=== PATIENT | female | born 1980 | race Caucasian/White ===

== ENCOUNTER 2020-07-05 17:20 | Emergency (ER) | payer MEDICAID ==
[~2020-07-05] VITALS: Ht 170.2 cm; Wt 66.9 kg
[2020-07-05 17:36] VITALS: BP 124/79
[2020-07-05] MEDS ORDERED: clindamycin 150mg capsule PO ONE (17:55)
[2020-07-05] MEDS ORDERED: HYDROcodone/acetaminophen 5mg/325mg tablet PO ONE (17:55)
[2020-07-05] MEDS ORDERED: ondansetron 4mg rapidly disintigrating tab PO ONE (17:55)
[2020-07-05] MEDS ORDERED: IBUP-1984 PO (17:57)
[2020-07-05] MEDS ORDERED: CLIN300C70 PO (17:57)
[2020-07-06] MEDS ORDERED: METR500T PO (02:49)
[2020-07-06] MEDS ORDERED: HYDR-3965 PO (02:49)
[2020-07-06] MEDS ORDERED: ONDA4TAB6 PO (02:49)
[2020-07-06] MEDS ORDERED: METH4TAB81 PO (02:49)
== END 2020-07-05 18:27 | disposition home or self-care (01) ==
LOC: ER 17:22
DX: K04.7 Periapical abscess without sinus (principal); Z79.2 Long term (current) use of antibiotics; Z79.899 Other long term (current) drug therapy
CPT/HCPCS: 99284

== ENCOUNTER 2020-07-06 02:21 | Emergency (ER) | payer MEDICAID ==
[~2020-07-06] VITALS: Ht 170.2 cm; Wt 60.9 kg
[~2020-07-06 02:21] MED LIST: CLIN300C70 PO; IBUP-1984 PO
[2020-07-06 02:31] VITALS: BP 122/82
[2020-07-06] MEDS ORDERED: METR500T PO (02:49)
[2020-07-06] MEDS ORDERED: ONDA4TAB6 PO (02:49)
[2020-07-06] MEDS ORDERED: HYDR-3965 PO (02:49)
[2020-07-06] MEDS ORDERED: METH4TAB81 PO (02:49)
[2020-07-06] MEDS ORDERED: ondansetron 4mg rapidly disintigrating tab PO ONE (02:50)
[2020-07-06] MEDS ORDERED: HYDROcodone/acetaminophen 5mg/325mg tablet PO ONE (02:50)
== END 2020-07-06 03:33 | disposition home or self-care (01) ==
LOC: ER 02:21
DX: K04.7 Periapical abscess without sinus (principal); K02.9 Dental caries, unspecified; Z88.5 Allergy status to narcotic agent; Z79.899 Other long term (current) drug therapy; Z79.1 Long term (current) use of non-steroidal anti-inflammatories (NSAID)
CPT/HCPCS: 99283

== ENCOUNTER 2025-04-11 10:38 | Inpatient (IN) | payer MEDICAID ==
[~2025-04-11] VITALS: Ht 165.1 cm; Wt 88.6 kg
[~2025-04-11 10:38] MED LIST changes: -CLIN300C70 PO; -IBUP-1984 PO; +METH4TAB81 PO; +ONDA4TAB6 PO
[2025-04-11 11:24] LABS: MEAN PLATELET VOLUME 10.1 FL (7.4-10.4); RED CELL DISTRIBUTION WIDTH 14.0 % (11.5-14.5)
[2025-04-11 11:54] LABS: CREATININE 0.92 MG/DL (0.40-0.90); TOTAL CARBON DIOXIDE 20.7 MMOL/L (24-32); eCRCL 71 ML/MIN; eGFR 67 ML/MIN
[2025-04-11 12:37] LABS: LEUKOCYTE ESTERASE ,URINE TRACE (Neg); NITRITES, URINE NEGATIVE (Neg); OCCULT BLOOD,URINE TRACE-INTACT (Neg)
[2025-04-11 12:40] LABS: URINE HCG NEGATIVE (NEG)
[2025-04-11 12:54] LABS: UA COLLECTION TYPE NON-SPECIFIED
[2025-04-11 12:57] LABS: SQUAMOUS EPITHELIAL CELL,UR FEW /LPF (FEW)
[2025-04-11 12:58] LABS: MUCUS STRANDS FEW /LPF (Neg)
--- NOTE | 2025-04-11 13:26 | Physician Documentation ---
History of Present Illness ~ Chief Complaint: Abdominal Pain Stated Complaint: ABD PAIN Time Seen by MD: 13:15 Primary Medical Doctor: [facility] [place] Source: patient Mode of Arrival: Ambulatory Exam Limitations: no limitations HPI Chief Complaint: Nausea vomiting diarrhea Caveat: None Independent Historians: None History of Present Illness: Patient is a 44-year-old woman who complains of nausea vomiting diarrhea that began four days ago. Patient was vomiting and having diarrhea as recently as this morning. Patient complains of diffuse mid and right lower quadrant abdominal pain. Pain is described as sharp. Patient denies any fevers. Review of systems: All systems were reviewed and are negative except for what is indicated in the history of present illness. Past Medical History: Depression, anxiety, bipolar illness Past Surgical History: Cholecystectomy Social History: Medications: Reviewed as documented Nursing Notes Allergies: Reviewed as documented in Nursing Notes Medication Reconciliation Allergies: Coded Allergies: codeine (Verified Allergy, Unknown, 02/16/25) Uncoded Allergies: CODIENE (Allergy, Severe, throat closes, 07/05/20) Scheduled Methylprednisolone (Medrol Dosepak), 1 TAB PO UD Scheduled PRN Ondansetron Hcl (Zofran), 1 TAB PO Q6H PRN for nausea/vomiting Past Medical History Past Medical History: No Pertinent History Past Surgical History: noncontributory Alcohol Use: None Drug Use: none Review of Systems All Other Systems at this time: Reviewed and Negative ROS Patient denies any other acute symptoms other than above. All other systems are negative Physical Exam Vital Signs: RN Vital Signs have been reviewed: Yes, Temperature: 97.5, Source: Temporal, Heart Rate: 61, Respiratory Rate: 14, BP: 109/80, Pulse Oximetry: 97, Weight: 88.640 Oxygen Flow Rate: 0 Pulse Oximetry Reflects: adequate oxygenation Physical Exam General Appearance: Distress HEENT: Normal OP, moist oral mucosa, PERRL, EOMI Neck: supple, normal ROM, trachea midline Pulmonary: No respiratory distress, CTA, BS equal Cardiac: RRR, no murmur, rub or gallop, GI: nondistended, soft, diffuse tenderness, most tender in the right lower quadrant, normal bowel sounds, no guarding, no rebound Extremities: normal ROM, no swelling, non-tender Skin: intact, dry, warm, no rashes Neuro: AAOx3, speech is clear, no focal motor weakness Psych: normal affect, good eye contact, no apparent hallucination, normal speech Progress Results/Orders Results/Orders Orders - DENZEL LONG MD Cult Urine + [place] Ct (04/11/25 13:02) Ct Abdomen Pelvis (04/11/25 14:10) Page Hospitalist (04/11/25 15:46) Fill Out Med Reconciliation (04/11/25 15:46) Ct Abdomen Pelvis (04/11/25 19:20) Completed Orders - DENZEL LONG MD Hcg, Ur Ql (04/11/25 10:47) Cbc/Diff (04/11/25 10:47) BMP (04/11/25 10:47) Lipase (04/11/25 10:47) CMP (04/11/25 10:47) Ua W/Microscopic, Cult If Ind (04/11/25 12:00) Ondansetron Inj. (Zofran 4mg/2ml Vial) (04/11/25 13:50) Morphine 4mg/Ml Inj. (Morphine Inj.) (04/11/25 13:50) Ct Abdomen Pelvis (04/11/25 14:10) Diatr Meglu/Diatrizoate 30ml (Gastrograf (04/11/25 16:10) Medications Received in ER Medications (Trade) Dose Ordered Sig/Flakita Route PRN Reason Start Time Stop Time Status Last Admin Dose Admin (Zofran 4mg/2ml vial) 4 mg ONCE ONCE IV 04/11/25 13:50 04/11/25 13:51 DC 04/11/25 14:02 4 MG (morphine inj.) 4 mg Q20M PRN IV moderate to severe pain 4-10 04/11/25 13:50 04/11/25 15:19 DC 04/11/25 15:19 4 MG (Gastrografin 66-10 oral solution) 10 ml Q45M PO 04/11/25 16:10 04/11/25 17:41 DC 04/11/25 17:36 10 ML Vital Signs 04/11/25 04/11/25 04/11/25 04/11/25 10:46 11:45 12:20 12:49 Temp 97.5 Pulse 88 69 61 Resp 18 16 14 B/P (MAP) 122/79 110/76 (87) 109/80 (90) Pulse Ox 99 98 97 O2 Flow Rate 0 0 0 04/11/25 04/11/25 04/11/25 04/11/25 14:03 14:24 14:25 15:19 Pulse 70 69 Resp 16 14 14 12 B/P (MAP) 107/66 (80) 107/66 (80) Pulse Ox 97 95 O2 Flow Rate 0 04/11/25 04/11/25 04/11/25 15:28 15:44 16:00 Pulse 67 Resp 14 14 14 B/P (MAP) 104/63 (77) Pulse Ox 98 O2 Flow Rate 0 Laboratory Tests Test 04/11/25 11:16 04/11/25 12:00 White Blood Count 8.2 Red Blood Count 5.10 Hemoglobin 15.1 Hematocrit 44.3 Mean Corpuscular Volume 86.9 Mean Corpuscular Hemoglobin 29.6 Mean Corpuscular Hemoglobin Concent 34.1 Red Cell Distribution Width 14.0 Platelet Count 207 Mean Platelet Volume 10.1 Neutrophils (%) (Auto) 70.6 Lymphocytes (%) (Auto) 19.1 L Monocytes (%) (Auto) 8.6 Eosinophils (%) (Auto) 1.3 Basophils (%) (Auto) 0.4 Neutrophils # (Auto) 5.7 Lymphocytes # (Auto) 1.6 Monocytes # (Auto) 0.7 Eosinophils # (Auto) 0.1 Basophils # (Auto) 0.0 CBC Comment Sodium Level 138 Potassium Level 3.5 Chloride Level 105 Carbon Dioxide Level 20.7 L Anion Gap 12 Blood Urea Nitrogen 9 Creatinine 0.92 H Estimated GFR/1.73 m2 67 BUN/Creatinine Ratio 9.8 L Glucose Level 103 Calcium Level 9.0 Total Bilirubin 0.7 Aspartate Amino Transf (AST/SGOT) 24 Alanine Aminotransferase (ALT/SGPT) 31 Alkaline Phosphatase 88 Total Protein 7.9 Albumin 4.0 Globulin 3.9 Albumin/Globulin Ratio 1.0 L Lipase 33 Chemistry Comments Urine Specimen Description Non-specified Urine Color Yellow Urine Clarity Slightly cloudy Urine pH 6.0 Urine Specific [place] 1.020 Urine Protein Negative Urine Glucose (UA) Negative Urine Ketones 15 H Urine Occult Blood Trace-intact Urine Nitrite Negative Urine Bilirubin Moderate Urine Urobilinogen 0.2 Urine Leukocyte Esterase Trace H Urine RBC 3-10 Urine WBC 5-10 H Urine Squamous Epithelial Cells Few Urine Bacteria 2+ Urine Hyaline Casts 3-5 Urine Mucus Few Urine Culture Indicated Indicated Volume Urine Centrifuged 10 ml Urine HCG, Qualitative Negative Urine Comment See note Microbiology Date/Time Source Procedure Growth Status 04/11/25 13:02 Urine Nonspecified Urine Culture - Preliminary Culture received. Resulted Medical Decision Making Findings Differential diagnosis includes but is not limited to: EKG independent interpretation: Chest x-ray, single view, indication: Independent interpretation: CT abdomen pelvis, without IV contrast, indication: Abdominal pain Impression: Abnormal dilatation of small bowel loops up to approximately 4 cm. There is associated swirling of the mesentery within the central aspect of the left midabdomen. These findings are concerning for internal hernia / closed loop obstruction. Recommend surgical consultation. Cholecystectomy. Small amount of free pelvic fluid. Laboratory data independent interpretation: CBC: Normal CMP: Unremarkable except for a mild low bicarb of 20.7 Urinalysis: RBC 3-10, WBC 5-10, few squamous epithelial cells 2+ bacteria Urine test: Negative Emergency department course/medical decision-making: Patient presents with acute abdominal pain with the associated nausea and vomiting. Patient is given morphine 4 mg IV and Zofran 4 mg IV and 1 L of normal saline IV. Patient's CT scan is concerning for internal hernia and closed loop obstruction. However the patient has been having diarrhea. Surgery will be consulted. I recommend admission. Dr. Maciel will see the patient this evening. Going to order CT abdomen and pelvis with oral and IV contrast. Admit to the hospitalist. 6:20 p.m.: Patient re-evaluated. Patient's abdominal exam has definitely changed. Patient is now distended and tympanitic to percussion. Patient's ab domen is soft in the upper abdomen it is tender in the lower abdomen. Dr. Maciel called to notify him change and the likely need for surgery. Consultation/communications: 3:25 p.m.: Call up placed out to Dr. Maciel for consultation. 3:43 p.m.: Case discussed with Dr. Maciel. Departure Time of Disposition: 15:53 Disposition: 09 ADMITTED INPATIENT Admitted to Inpatient Unit: to hospitalist Admission Level of Care: Med/Surg Impression: Primary Impression: Abdominal pain Qualified Codes: R10.84 - Generalized abdominal pain Additional Impression: Nausea vomiting and diarrhea Condition: Fair Education Educated: Patient, Family Educated regarding: diagnosis, treatment Signature Scribe Signature: . Attestation: . DENZEL LONG MD Apr 11, 2025 13:26
[2025-04-11] MEDS: ondansetron/PF 4mg/2ml inj IV ONE (14:02)
[2025-04-11] MEDS: morphine 4 MG/ML inj SYRINge IV PRN (14:03)
--- NOTE | 2025-04-11 14:49 | RADIOLOGY REPORT ---
Indication: Abdominal Pain Technique: CT axial images of the abdomen and pelvis are obtained without contrast. Coronal and sagit lamin reformats were obtained. Radiation Dose Information: CTDI volume is 28 mGy. Dose-length product is 1444 mGy*cm Comparison: CT CT ABDOMEN PELVIS on DOS: 02/16/25 FINDINGS: There is limited interpretation of the abdomen and pelvis without administration of intravenous contr ast. Lung bases demonstrate no pleural effusion Adrenal glands, spleen, pancreas and liver unremarkable in shape. Cholecystectomy. Kidneys demonstrate no hydronephrosis, nephrolithiasis. Stomach partially distended. Small bowel loops are dilated up to 4 cm with multiple air-fluid levels . There is swirling of the central mesentery centered in the left midabdomen. Moderate fluid distention large bowel loops. Normal appendix. Bladder is partially distended. Small amount of free pelvic fluid. No inguinal lymphadenopathy. No aggressive osseous process. [id number] thoracolumbar degenerative disc disease most pronounc ed at L5-S1. IMPRESSION: Limited evaluation without contrast. Abnormal dilatation of small bowel loops up to approximately 4 cm. There is associated swirling of th e mesentery within the central aspect of the left midabdomen. These findings are concerning for inte rnal hernia / closed loop obstruction. Recommend surgical consultation. Cholecystectomy. Small amount of free pelvic fluid. Other findings as above
[2025-04-11] MEDS: diatr meglu/diatrizoate 30ml oral sol.-(3 dose) bottle PO SCH (16:20)
[2025-04-11] MEDS ORDERED: potassium Cl 20 mEq SR tablet PO PRN (16:45)
[2025-04-11] MEDS ORDERED: magnesium sulf-water 4G/100mL 100 ML IV PRN (16:45)
[2025-04-11] MEDS ORDERED: magnesium sulf-water 2g/50mL 50 ML IV PRN (16:45)
[2025-04-11] MEDS ORDERED: magnesium Cl slow-release 64mg tablet PO PRN (16:45)
[2025-04-11] MEDS: normal saline 1000ml 1,000 ML IV SCH (17:11)
--- NOTE | 2025-04-11 17:18 | HISTORY AND PHYSICAL-Residence ---
History & Physical Providers to CC Resident Creating Document: ALBA FRANCES RES ~ History of Present Illness Primary Medical Doctor: [facility] Reason for Admit\Complaint: Abdominal pain and diarrhea History of Present Illness The 44-year-old female presented to the ER with a chief concern of worsening diarrhea in the last five days. She developed significant diarrhea on last week and also developed sharp abdominal pain in the epigastric region, umbilical region and hypogastric region. She complains of greenish stool and multiple episodes in a day. She had significant vomiting on Friday and went to [facility] ER where she received IV fluids and sent back home. Today, she denies any abdominal pain but states that she has burps. Has continuous diarrhea and abdominal pain. Denies any blood in the stool or vomiting. Denies any recent antibiotic usage. Stated that she had similar complaints about a month pack and a CT done on 02/16/2025 showed no acute findings. Started using Zepbound 2.5 mg once a week for two months. Denies any dysuria but complains of abdominal pain while passing urine. Denies any other complaints. Had robotic cholecystectomy in 2005. Never had a colonoscopy and no family history of colon cancer. Mentioned that she had issues with intermittent diarrhea and constipation and was told that she might have irritable bowel syndrome. Allergies: Coded Allergies: codeine (Verified Allergy, Unknown, 02/16/25) Uncoded Allergies: CODIENE (Allergy, Severe, throat closes, 07/05/20) Home Medications Home Medications Active Zofran (Ondansetron Hcl) 4 Mg Tablet 1 Tab PO Q6H PRN Medrol Dosepak (Methylprednisolone) 4 Mg Tab.ds.pk 1 Tab PO UD Past Medical History Past Medical History Bipolar disorder, depression, tobacco abuse Past Surgical History Surgical History Comment Robotic cholecystectomy Past Social History Social History Comment Smoked about two packs of cigarettes per day earlier and now came down to 2-3 cigarettes per day. Sober for an year. Stated that she drank a lot earlier- about 750 mL of whiskey in a day. Smokes methamphetamine in the last time she did that was a few months back. Alcohol Use: None Drug Use: None ROS ROS Constitutional: No fever, chills, dizziness, weakness, weight gain or loss Eyes: No pain, erythema, discharge, blurring of vision ENT: No sore throat, epistaxis, tinnitus Cardiovascular: No chest pain, chest pressure, chest discomfort, palpitations, syncope, lower extremity edema, paroxysmal nocturnal dyspnea Respiratory: No shortness of breath, cough, hemoptysis Gastrointestinal: Nausea, diarrhea present. Normal appetite. No vomiting,constipation, hematemesis, abdominal pain, bloating, melena or fresh blood Genitourinary: No frequency, urgency, nocturia, hematuria or dysuria Musculoskeletal: No arthralgias or myalgias Integumentary: No change in skin, hair, nails. No swelling, bruising, abrasions Neurologic: No headache, neck pain, numbness or tingling of the extremities, weakness Psychiatric: No delusions, depression, loss of interest in normal activity or change in sleep pattern, hallucinations, suicidal ideations Endocrine: No fatigue, weakness, polydipsia, polyuria, change in appetite, heat or cold intolerance, sweating, dry skin Hematological: No bleeding, petechiae, bruising Allergies: No asthma or urticaria Exam Vitals: Vital Signs Date Time Temp Pulse Resp B/P (MAP) Pulse Ox O2 Delivery O2 Flow Rate FiO2 04/11/25 16:45 64 14 112/69 (83) 98 0 04/11/25 10:46 97.5 General: Alert and oriented x4 HEENT: Normocephalic and atraumatic. Pupils equal round reactive to light and accommodation. Extraocular movements intact. Oral and nasal mucosa moist Neck: Trachea is in midline. No masses or JVD Chest: Bilateral normal breath sounds. No crackles, rhonchi or wheezes Cardiovascular: Regular rate and rhythm. S1-S2 normal. No rubs or murmurs Abdomen: Soft, mildly distended. Tenderness mainly in the hypogastric and umbilical region. Decreased bowel sounds in the right upper quadrant and lumbar region. Extremities: No cyanosis, clubbing or edema Central Nervous System: No gross sensory or motor deficits. CN II to XII grossly intact Musculoskeletal: No acute abnormalities Skin: Warm and dry Diagnostic Data Last Recorded Lab Results: 04/11/25 1116 04/11/25 1116 Diagnostic Data: Laboratory Tests Test 04/11/25 17:04 Advance Care Planning Advanced Care plannin - 30 Minutes Additional Plan Abdominal pain, diarrhea, nausea Possible closed loop bowel obstruction Metabolic acidosis with normal anion gap C diff toxin ordered Abdomen/pelvis CT showed abnormal dilatation of small-bowel loops up to 4 cm, associated swelling of the mesentery within the central aspect of left mid abdomen. Concerning for internal hernia/close loop obstruction. Cholecystectomy. Small amount of free pelvic fluid ER physician consulted Dr. Maciel. Recommended Abdomen/pelvis CT with oral and IV contrast. Did not recommend any NG tube. Not actively vomiting Abdomen/pelvis CT with oral and IV contrast ordereded. Surgeon will see the patient later today Hold home medications Zepbound Patient aving multiple episodes of diarrhea. So, Unlikely to have a complete bowel obstruction Pending lactic acid, urine tox Started normal saline at 100 cc/hour Pending procalcitonin Stool cultures and stool WBCs ordered Zofran prn for nausea/vomiting Did not start on any antibiotics due to suspicion of C diff. No fever, no elevated WBC. Urine analysis: Ketones 15, trace leukocyte esterase, 5-10 WBC, 2+ bacteria, 3- 5 casts Depression/bipolar disorder Continue home medication after med reconciliation Tobacco abuse Start nicotine patch if needed Holding nicotine patch for now due to possible surgery # pending home medication reconciled DVT prophylaxis: SCDs for now. Possible surgery today GI prophylaxis: NPO Alba Frances MD Internal Medicine Resident, PGY 3 Date of Service: Apr 11, 2025 Billing Provider: TOM CHANG MD, MANOJNA RES Apr 11, 2025 17:18
[2025-04-11 17:26] LABS: APTT 25 SECONDS (22-32); INR 1.1 INR
[2025-04-11] MEDS ORDERED: iohexol 300mg/ml 100ml inj. ONE (18:39)
[2025-04-11 19:05] VITALS: BP 127/78; PULSE 59; RESP 18; TEMP 97.7; O2SAT 99
--- NOTE | 2025-04-11 19:13 | RADIOLOGY REPORT ---
COMPUTERIZED TOMOGRAPHY ABDOMEN AND PELVIS WITH CONTRAST REASON FOR EXAM: Abdominal Pain COMPARISON: CT CT ABDOMEN PELVIS on DOS: 04/11/25, CT CT ABDOMEN PELVIS on DOS: 02/16/25 TECHNIQUE: The exam was performed on a Multidetector scanner. Spiral scans were acquired from the henri phragm to the symphysis pubis after administration of IV contrast. 2-D coronal and sagittal reformatt ed images were provided. Radiation optimization: All CT scans at this facility use at least one of th nessa dose optimization techniques: Automated exposure control mA and/or kV adjustment per patient size (includes targeted exams where dose is matched to clinical indication) or iterative reconstruction. CONTRAST ADMINISTRATION: 180 mL omnipaque 300 intravenously RADIATION DOSE: CTDI: 30 mGy DLP: 1456 mGy-cm FINDINGS: The visualized lung bases are clear. There is no pleural effusion. There is no pericardial effusion . There is a small hiatal hernia. The stomach is moderately distended with contrast and other ingested material. The spleen is not enlarged. The liver is normal in size and contour. The gallbladder is s urgically absent. The pancreas is unremarkable. The adrenal glands are normal. The kidneys enhance sy mmetrically. No solid renal mass is identified. There is no hydronephrosis of either kidney. The uri nary bladder is unremarkable. The uterus and ovaries are within normal limits. There is some liquid s tool in the colon and rectum, consistent with diarrhea. The appendix is normal. There is fluid disten ding several loops of distal ileum with a transition point in the low middle anterior pelvis. The te rminal ileum is decompressed. There is trace free fluid in the dependent pelvis. No pathologic lympha denopathy is identified. There is no abdominal aortic aneurysm. No acute osseous abnormality is iden tified. IMPRESSION: Likely early versus low-grade distal small bowel obstruction with a transition point in the low middl e anterior pelvis. Small hiatal hernia.
[2025-04-11 19:42] LABS: URINE AMPHETAMINE SCREEN NEGATIVE (Neg); URINE BARBITUATE SCREEN NEGATIVE (Neg); URINE BENZODIAZEPINES SCREEN NEGATIVE (Neg); URINE CANNABINOID SCREEN POSITIVE (Neg); URINE COCAINE SCREEN NEGATIVE (Neg); URINE METHADONE SCREEN NEGATIVE (Neg); URINE OPIATE SCREEN NEGATIVE (Neg); URINE PHENCYCLIDINE SCREEN NEGATIVE (Neg)
[2025-04-11] MEDS: K and/or MAG REPLACEMENT MC SCH (20:00)
--- NOTE | 2025-04-11 20:35 | PROGRESS NOTE ---
Progress Note ID Providers to CC ~ Progress Note Progress Note: discussed with nurse-multiple bm SACHIN FISH MD Apr 11, 2025 20:35
[2025-04-11 22:00] VITALS: BP 109/63; PULSE 60; RESP 16; TEMP 97.9; O2SAT 95
[2025-04-11] MEDS ORDERED: DOCU-391 PO (22:28)
[2025-04-11] MEDS ORDERED: GABA-1405 PO (22:28)
[2025-04-11] MEDS ORDERED: BUPR-480 PO (22:28)
[2025-04-11] MEDS ORDERED: ZOLP-679 PO (22:28)
[2025-04-11] MEDS ORDERED: TIRZ2.5P3 SQ (22:28)
[2025-04-11] MEDS ORDERED: FLUO-1 PO (22:28)
[2025-04-11] MEDS ORDERED: PROG100C11 PO (22:28)
[2025-04-12] MEDS: ondansetron/PF 4mg/2ml inj IV PRN (04:56)
[2025-04-12 05:36] LABS: MEAN PLATELET VOLUME 10.4 FL (7.4-10.4); RED CELL DISTRIBUTION WIDTH 13.9 % (11.5-14.5)
[2025-04-12 05:47] LABS: APTT 25 SECONDS (22-32); INR 1.1 INR
[2025-04-12 06:00] VITALS: BP 101/58; PULSE 61; RESP 16; TEMP 98; O2SAT 99
[2025-04-12 06:06] LABS: CREATININE 0.72 MG/DL (0.40-0.90); PHOSPHORUS 3.4 MG/DL (2.3-4.5); TOTAL CARBON DIOXIDE 23.5 MMOL/L (24-32); eCRCL 91 ML/MIN; eGFR 88 ML/MIN
[2025-04-12 08:10] LABS: C DIFF ANTIGEN NEGATIVE (NEGATIVE); C DIFF SPECIMEN=DIARRHEA? ACCEPTABLE; C DIFFICILE TOXINS A&B NEGATIVE (Neg)
[2025-04-12 10:00] VITALS: BP 100/59; PULSE 56; RESP 15; TEMP 97.5; O2SAT 99
[2025-04-12] MEDS: potassium Cl 40MEQ/1/2NS 520ml 520 ML IV PRN (11:18)
[2025-04-12 11:45] VITALS: BP 108/59; PULSE 54
[2025-04-12] MEDS: CefTRIAXone/D5W-Rocephin 1gm 50 ML IV ONE (15:23)
--- NOTE | 2025-04-12 16:05 | PROGRESS NOTE- Residence ---
Progress Note - Resident Providers to CC Resident Creating Document: CINTHYA RENTERIA RES ~ Antibiotic Timeout Antibiotic Ordered?: Yes Subjective Patient is seen and examined at bedside,She is complaining of diffuse abdominal pain which is 8/10 in intensity and diarhhea which is greenish in colour, She denies vomitting and nausea Objective Vital Signs Date Time Temp Pulse Resp B/P (MAP) Pulse Ox O2 Delivery O2 Flow Rate FiO2 04/12/25 11:45 54 108/59 (75) 04/12/25 10:00 97.5 15 99 Room Air 04/11/25 22:00 0.0 Result Diagram: 04/12/25 0441 04/12/25 0441 General: awake, alert oriented to place, time, and person HEENT: No pallor present, no icterus, moist mucous membranes Neck: No masses and tenderness Resp: Unlabored. Lungs clear to auscultation bilaterally. Chest: Normal expansion. Cardiovascular: Regular Rate and rhythm, normal S1 and S2 without murmur, rub or gallop Abdomen: Soft and diffusely tender abdomen, no organomegaly, no guarding and rigidity, bowel sounds present Neuro: No focal weakness in the upper and lower limb muscles, power of the muscles 5/5 bilateral upper and lower extremities, normal reflexes bilaterally. Cranial nerves intact Extremities: No cyanosis,clubbing or edema Skin: Warm and Dry. Psych: Normal affect Coagulation Studies Laboratory Tests Test 04/12/25 04:41 Prothrombin Time 11.0 SECONDS (9.0-12.0) INR International Normalized Ratio 1.1 INR Activated Partial Thromboplast Time 25 SECONDS (22-32) Coagulation Comments Plan Plan Acute gastroenteritis viral versus bacterial Abdominal pain, diarrhea, nausea secondary to above Possible closed loop bowel obstruction Metabolic acidosis with normal anion gap C diff toxin ordered Abdomen/pelvis CT showed abnormal dilatation of small-bowel loops up to 4 cm, associated swelling of the mesentery within the central aspect of left mid abdomen. Concerning for internal hernia/close loop obstruction. Cholecystectomy. Small amount of free pelvic fluid ER physician consulted Dr. Maciel. Recommended Abdomen/pelvis CT with oral and IV contrast. Did not recommend any NG tube. Not actively vomiting Abdomen/pelvis CT with oral and IV contrast ordereded. Surgeon will see the patient later today Hold home medications Zepbound Patient aving multiple episodes of diarrhea. So, Unlikely to have a complete bowel obstruction Pending lactic acid, urine tox Started normal saline at 100 cc/hour Pending procalcitonin Stool cultures and stool WBCs ordered Zofran prn for nausea/vomiting Did not start on any antibiotics due to suspicion of C diff. No fever, no elevated WBC. Urine analysis: Ketones 15, trace leukocyte esterase, 5-10 WBC, 2+ bacteria, 3- 5 casts On 04/12/25 Started patient empiric antibiotic,flagyl 500 mg BID and rocephin 1 g. Creatinine imprvoed from 0.92 to 0.72 Follow up with stool cultures, ova and parasite stool antigen Procalcitonin < 0.05 UA TOX positive for cannabinoids C.diff toxin and antigen negative Awaiting hep b panel Dr. Maciel following, appreciate recommendations Hypokalemia K 3.3 Replace potassium per protocol Depression Continue bupropion 300 mg and fluxoetine 20 mg,once patient is no longer NPO. Tobacco Use Start nicotine patch if needed DVT prophylaxis: SCDs for now. Cinthya Renteria, PGY1 Resident Addendum: Chart reviewed by me agree with the assessment and plan as above. Patient is a 45-year-old female admitted for acute gastroenteritis with profuse diarrhea. Testing for C diff is negative so far. She does not have any signs of infection white count within normal limits procalcitonin within normal limits. Started empiric IV antibiotics for possible bacterial gastroenteritis with Flagyl and ceftriaxone. Follow up with stool cultures ova and parasites. Yuli Wooten MD IM resident Date of Service: Apr 12, 2025 Billing Provider: CINTHYA RENTERIA RES KUMAR, SANJAY, RES Apr 12, 2025 16:05 YULI WOOTEN RES Apr 12, 2025 18:17
[2025-04-12] MEDS: metroNIDAZOLE-Flagyl 500mg/NS 100 ML IV SCH (16:14)
[2025-04-12] MEDS ORDERED: diatr meglu/diatrizoate 30ml oral sol.-(3 dose) bottle ONE (17:52)
[2025-04-12 18:00] VITALS: BP 126/83; PULSE 60; RESP 16; TEMP 97.6; O2SAT 99
[2025-04-12 18:30] VITALS: BP 126/83; PULSE 60; RESP 16; TEMP 97.6; O2SAT 99
--- NOTE | 2025-04-12 19:09 | RADIOLOGY REPORT ---
EXAM: CT CT ABDOMEN PELVIS W/ RECTAL CON CONTRAST HISTORY: pain TECHNIQUE: Volumetric multidetector CT images of the abdomen and pelvis were obtained after the admin istration of intravenous contrast. All CT scans at this facility use dose modulation, iterative recon struction, and/or weight based dosing when appropriate to reduce radiation dose to as low as reasonab ly achievable. COMPARISON: CT CT ABDOMEN PELVIS W/ IV ORAL CONTRAST on DOS: 04/11/25 FINDINGS: [LOWER CHEST]: The partially visualized lung bases are clear without a pleural effusion. [LIVER]: Normal hepatic size without suspicious focal lesion. [GALLBLADDER AND BILIARY TREE]: Surgically absent. [SPLEEN]: Unremarkable. [PANCREAS]: Unremarkable. [ADRENAL GLANDS]: Unremarkable [KIDNEYS]: No hydronephrosis. No nephroureterolithiasis. No suspicious focal lesion. [BLADDER]: Unremarkable for the degree distention. [REPRODUCTIVE ORGANS]: Unremarkable. [BOWEL/MESENTERY]: Stomach is normal. Rectal tube in place with barium contrast extending to the cecu m. Normal appendix. No definitive area of colonic stricture. [ASCITES]: Absent [LYMPHADENOPATHY]: No pathologically enlarged lymph nodes by CT size criteria [VASCULATURE]: No aneurysmal dilatation. [ABDOMINAL WALL]: Unremarkable. [MUSCULOSKELETAL]: No acute fracture or aggressive focal osseous lesion. Multifocal degenerative munguia ge of the visualized spine. IMPRESSION: 1. No CT evidence of an acute abdominal/pelvic process. 2. Rectal tube in place with barium contrast extending to the cecum. Normal appendix. No definitive a tatiana of colonic stricture.
--- NOTE | 2025-04-12 19:22 | PROGRESS NOTE ---
Progress Note ID Providers to CC ~ Progress Note Progress Note: pt seen and examined-multiple bm-no sbo-start clears SACHIN FISH MD Apr 12, 2025 19:22
[2025-04-12 22:00] VITALS: BP 111/67; PULSE 50; RESP 16; TEMP 96.9; O2SAT 99
[2025-04-13 06:00] VITALS: BP 126/67; PULSE 55; RESP 19; TEMP 96.5; O2SAT 98
[2025-04-13 06:15] LABS: APTT 27 SECONDS (22-32); INR 1.1 INR
[2025-04-13 06:18] LABS: MEAN PLATELET VOLUME 10.3 FL (7.4-10.4); RED CELL DISTRIBUTION WIDTH 13.6 % (11.5-14.5)
[2025-04-13 06:21] LABS: CREATININE 0.74 MG/DL (0.40-0.90); PHOSPHORUS 3.1 MG/DL (2.3-4.5); TOTAL CARBON DIOXIDE 25.0 MMOL/L (24-32); eCRCL 88 ML/MIN; eGFR 86 ML/MIN
[2025-04-13] MEDS: BUPROPION HCL 150MG XL 24 HR 150 MG TAB PO SCH (07:57)
[2025-04-13] MEDS: CefTRIAXone/D5W-Rocephin 1gm 50 ML IV SCH (09:56)
[2025-04-13] MEDS: lactobacillus rhamnosus 10,000 MMU CELLS/CAPSULE PO SCH (09:56)
[2025-04-13 10:00] VITALS: BP 121/66; PULSE 55; RESP 14; TEMP 97.5; O2SAT 99
--- NOTE | 2025-04-13 15:36 | CONSULTATION REPORT - RESIDENT ---
Consult Providers to CC Resident Creating Document: ARTURO GREGG RES History of Present Illness Reason for Admit\Complaint: diarrhea History of Present Illness A 44 years old female patient with past medical history of tobacco abuse, depression, bipolar disease presented to ER with chief complaint of worsening diarrhea from the last 5 days. She complains of multiple episodes of greenish, watery, foul-smelling diarrhea from last 5 days associated with nausea, vomiting , sharp abdominal pain in epigastric, umbilical, and hypogastric regions for which she went to [facility] ER where she received IV fluids and sent back to home. She denies abdominal distention, bloating, dyspepsia. She stated that she had similar complaints about a month ago and CT done on 02/16/2025 showed no acute findings. Patient C/O nausea and GERD symptoms including heartburn and acid reflux. She has needed multiple doses of Zofran for symptomatic relief. There symptoms have been chronic. She stated that she is using Zepbound 2.5 mg once a week from 1 month for weight loss. She denies any recent antibiotic usage. She denies any blood in the stool or vomiting. She denies any recent history of travel, food intake outside, fever, sick contacts. She mentioned that she had issues with intermittent diarrhea and constipation and was told that she might have irritable bowel syndrome. she never had a colonoscopy and EGD. She uses Colace occasionally for constipation. She denies any family history of Crohn's disease or ulcerative colitis. Allergies: Coded Allergies: codeine (Verified Allergy, Unknown, 02/16/25) Uncoded Allergies: CODIENE (Allergy, Severe, throat closes, 07/05/20) Home Medications Home Medications Active Zofran (Ondansetron Hcl) 4 Mg Tablet 1 Tab PO Q6H PRN Reported Progesterone (Progesterone,Micronized) 100 Mg Capsule 1 Cap PO DAILY Docusate Sodium 100 Mg Capsule 1 Cap PO HS PRN Ambien (Zolpidem Tartrate) 10 Mg Tablet 1 Tab PO HS Prozac (Fluoxetine HCl) 20 Mg Capsule 1 Cap PO DAILY Gabapentin 600 Mg Tablet 1 Tab PO HS Bupropion Xl (Bupropion HCl) 300 Mg Tab.er.24h 1 Tab PO QAM Zepbound (Tirzepatide) 2.5 Mg/0.5 Ml Pen.injctr 2.5 Mg SQ Q7D Past Medical History Past Medical History Bipolar disorder, depression, tobacco abuse Past Surgical History Surgical History Comment Robotic cholecystectomy, 2006 Family History Family History: FHx: asthma MOTHER Past Social History Social History Comment Active smoker, Smoked about two packs of cigarettes per day earlier and now came down to 2-3 cigarettes per day. Alcoholic, Stated that radha drank a lot earlier-about 750 mL of whiskey in a day. She smokes marijuana, methamphetamine occasionally, she smoked marijuana on last Friday ROS ROS Constitutional: No fever, chills, dizziness, weight gain or loss Eyes: No pain, erythema, discharge, blurring of vision ENT: No sore throat, epistaxis, tinnitus Cardiovascular:No chest pain, palpitations, syncope, lower extremity edema, paroxysmal nocturnal dyspnea Respiratory: No Shortness of breath and cough, No hemoptysis. Gastrointestinal:Reports Abdominal pain, vomiting,nausea and diarrhea. Normal appetite. No constipation,and melena, hematemesis, Musculoskeletal: No swelling or edema of extremities. Integumentary: No change in skin, hair, nails. No swelling, bruising, abrasions Neurologic: No weakness,No headache, neck pain, numbness or tingling of the extremities, Psychiatric: No delusions, depression, loss of interest in normal activity or change in sleep pattern, hallucinations, suicidal ideations Endocrine: No fatigue, no weakness. polydipsia, polyuria, change in appetite, heat or cold intolerance, sweating, dry skin Hematological: No bleeding, petechiae, bruising Allergies: No asthma or urticaria Exam Vitals: Vital Signs Date Time Temp Pulse Resp B/P (MAP) Pulse Ox O2 Delivery O2 Flow Rate FiO2 04/13/25 13:53 15 04/13/25 10:00 97.5 55 121/66 (84) 99 Room Air 04/12/25 22:00 0.0 General: Awake , alert and oriented to time,place, person, in mild distress HEENT: Atraumatic, normocephalic, PEERLA, anicteric sclera ; pink conjunctiva Neck: Trachea midline. Supple, normal range of motion, no JVD Cardiac: S1, S2 heard,Regular rate and rhythm, no murmurs heard. Chest and Respiratory: Equal breath sounds bilaterally, no tachypnea, wheezing and ronchi .Chest wall is symmetric and without deformity. Abdomen: Soft, mildly distended. Tenderness mainly in the hypogastric and umbilical region. Decreased bowel sounds . No guarding or rigidity, Leslie's sign negative. normal bowel sounds x4 quadrant, Midline well-healed skin graft, no hepatosplenomegaly MSK: Range of motion of all extremities are normal. There is no joint pain or joint swelling or joint erythema. There is no muscle pain or tenderness or swelling. Extremities: warm, well-perfused, No cyanosis, clubbing, 2+ pulses felt Neurological: Speech is clear, alert, and oriented x 4. No sensory or motor deficits. Cranial nerves II-XII intact. Skin: Warm and dry Psychiatry: Affect and mood are normal Diagnostic Data Last Recorded Lab Results: 04/13/25 0529 04/13/25 0529 Diagnostic Data: Laboratory Tests Test 04/13/25 05:29 Prothrombin Time 11.5 SECONDS (9.0-12.0) INR International Normalized Ratio 1.1 INR Activated Partial Thromboplast Time 27 SECONDS (22-32) Coagulation Comments Additional Plan Abdominal pain, diarrhea, nausea Possible gastroenteritis Possible cannabis induced diarrhea Possible closed loop bowel obstruction -Hold home medications Zepbound -CT abdomen showed abnormal dilatation of small-bowel loops up to 4 cm, associated swelling of the mesentery within the central aspect of left mid abdomen. Concerning for internal hernia/close loop obstruction. Small amount of free pelvic fluid -ER physician consulted Dr. Maciel. Recommended CT with oral and IV contrast -CT abdomen with oral and IV contrast is unremarkable -Negative for C difficile toxins and antigen -CBC, lactate and procalcitonin normal -Stool culture is negative -Urine toxicology is positive for cannabinoids -awaiting hepatitis-B panel -follow up with TSH level -IV Zofran 4 mg p.r.n. for nausea and vomiting -started on IV protonix 40 mg once daily - started on IV ceftriaxone 1 g once daily - started on IV metronidazole 500 mg q.12 h -Started on IV normal saline at the rate of 100 mL/hour - started on culturelle p.o. b.i.d. Metabolic acidosis with normal anion gap Hypokalemia, resolved Depression/bipolar disorder Tobacco abuse -Continue management as per primary hospitalist team DVT prophylaxis: SCD GI prophylaxis: Clear liquid diet Disposition: A 44 years old female patient admitted with worsening diarrhea for 5 days. Continue the medical management. Colonoscopy/EGD to be scheduled for tomorrow in view of recurrent and chronic symptomatology Val Gregg MD Internal Medicine Resident, PGY 1 Sepsis Screening Reassessment Date: Apr 13, 2025 Date of Service: Apr 13, 2025 Billing Provider: RUBIN SAUCEDO MD, SUNIL KUMAR, RES Apr 13, 2025 15:36 RUBIN SAUCEDO MD Apr 13, 2025 16:29
[2025-04-13] MEDS: PEG 3350/Na sulf,bicarb,Cl/KCl oral sol 4 liter bottle PO ONE (16:52)
--- NOTE | 2025-04-13 17:32 | PROGRESS NOTE- Residence ---
Progress Note - Resident Providers to CC Resident Creating Document: NAVNEET RENTERIA RES ~ Antibiotic Timeout Antibiotic Ordered?: Yes Subjective Patient is seen and examined at bedside,She is complaining of abdominal pain in hypogastric region which is 8/10 in intensity and diarhhea which is greenish in colour. She also feel nauseated but reports that with zofran its improved. Objective Vital Signs Date Time Temp Pulse Resp B/P (MAP) Pulse Ox O2 Delivery O2 Flow Rate FiO2 04/13/25 13:53 15 04/13/25 10:00 97.5 55 121/66 (84) 99 Room Air 04/12/25 22:00 0.0 Result Diagram: 04/13/2552804/13/25528 General: awake, alert oriented to place, time, and person HEENT: No pallor present, no icterus, moist mucous membranes Neck: No masses and tenderness Resp: Unlabored. Lungs clear to auscultation bilaterally. Chest: Normal expansion. Cardiovascular: Regular Rate and rhythm, normal S1 and S2 without murmur, rub or gallop Abdomen: Soft and tender abdomen in hypogastric region, no organomegaly, no guarding and rigidity, bowel sounds present Neuro: No focal weakness in the upper and lower limb muscles, power of the muscles 5/5 bilateral upper and lower extremities, normal reflexes bilaterally. Cranial nerves intact Extremities: No cyanosis,clubbing or edema Skin: Warm and Dry. Psych: Normal affect Coagulation Studies Laboratory Tests Test 04/13/25 05:29 Prothrombin Time 11.5 SECONDS (9.0-12.0) INR International Normalized Ratio 1.1 INR Activated Partial Thromboplast Time 27 SECONDS (22-32) Coagulation Comments Plan Plan Acute gastroenteritis viral versus bacterial Abdominal pain, diarrhea, nausea secondary to above Possible closed loop bowel obstruction Metabolic acidosis with normal anion gap C diff toxin ordered Abdomen/pelvis CT showed abnormal dilatation of small-bowel loops up to 4 cm, associated swelling of the mesentery within the central aspect of left mid abdomen. Concerning for internal hernia/close loop obstruction. Cholecystectomy. Small amount of free pelvic fluid ER physician consulted Dr. Maciel. Recommended Abdomen/pelvis CT with oral and IV contrast. Did not recommend any NG tube. Not actively vomiting Abdomen/pelvis CT with oral and IV contrast ordereded. Surgeon will see the patient later today Hold home medications Zepbound Patient aving multiple episodes of diarrhea. So, Unlikely to have a complete bowel obstruction Pending lactic acid, urine tox Started normal saline at 100 cc/hour Pending procalcitonin Stool cultures and stool WBCs ordered Zofran prn for nausea/vomiting Did not start on any antibiotics due to suspicion of C diff. No fever, no elevated WBC. Urine analysis: Ketones 15, trace leukocyte esterase, 5-10 WBC, 2+ bacteria, 3- 5 casts On 04/12/25 Started patient empiric antibiotic,flagyl 500 mg BID and rocephin 1 g. Creatinine imprvoed from 0.92 to 0.72 Follow up with stool cultures, ova and parasite stool antigen Procalcitonin < 0.05 UA TOX positive for cannabinoids C.diff toxin and antigen negative Awaiting hep b panel Dr. Maciel following, appreciate recommendations On 04/13/25 Started patient on pantoprazole IV 40 MG Also started patient on Culturelle Consulted GI Patient will undergo EGD and Colonoscopy tomorrow. Patient also received Golytely Kept patient NPO aftermidnight Stool cultures NGTD Hypokalemia K 3.5 Depression Continue bupropion 300 mg and fluxoetine 20 mg,once patient is no longer NPO. Tobacco Use Start nicotine patch if needed DVT prophylaxis: SCDs for now. Navneet Renteria, PGY1 Resident Addendum: Chart reviewed by me agree with the assessment and plan as above. Patient is a 45-year-old female admitted for acute gastroenteritis with profuse diarrhea. Testing for C diff and stool cultures negative so far. She does not have any signs of infection white count within normal limits procalcitonin within normal limits. Started empiric IV antibiotics for possible bacterial gastroenteritis with Flagyl and ceftriaxone. GI consulted for continuous profuse diarrhea, patient is scheduled to get EGD and colonoscopy tomorrow. Yuli Wooten MD IM resident Date of Service: Apr 13, 2025 Billing Provider: TOM CHANG MD, SANJAY, JACOB Apr 13, 2025 17:31 YULI WOOTEN, JACOB Apr 13, 2025 19:26
[2025-04-13 18:00] VITALS: BP 125/89; PULSE 51; RESP 12; TEMP 97.9; O2SAT 99
[2025-04-13 19:22] VITALS: RESP 16; O2SAT 95
[2025-04-13 22:00] VITALS: BP 111/62; PULSE 56; RESP 16; TEMP 97.8; O2SAT 96
[2025-04-14] VITALS (7 sets, daily range): BP systolic 97–128; BP diastolic 67–84; PULSE 42–53; RESP 10–16; TEMP 97.8–97.9; O2SAT 97–100
[2025-04-14 06:22] LABS: MEAN PLATELET VOLUME 9.9 FL (7.4-10.4); RED CELL DISTRIBUTION WIDTH 13.7 % (11.5-14.5)
[2025-04-14 06:33] LABS: APTT 27 SECONDS (22-32); INR 1.2 INR
[2025-04-14 06:51] LABS: CREATININE 0.85 MG/DL (0.40-0.90); PHOSPHORUS 3.0 MG/DL (2.3-4.5); TOTAL CARBON DIOXIDE 25.4 MMOL/L (24-32); eCRCL 77 ML/MIN; eGFR 73 ML/MIN
[2025-04-14] MEDS ORDERED: propofol inj 20 ML IV ONE (10:02)
--- NOTE | 2025-04-14 12:13 | PROGRESS NOTE- Residence ---
Progress Note - Resident Providers to CC Resident Creating Document: ARTURO GREGG, JACOB ~ Antibiotic Timeout Antibiotic Ordered?: Yes Subjective Patient complains of abdominal pain in epigastric and hypogastric regions. She endorses that her nausea improved with Zofran. Patient denies any complaints or concerns. No acute overnight symptoms reported. Scheduled for EGD and colonoscopy today. Objective Vital Signs Date Time Temp Pulse Resp B/P (MAP) Pulse Ox O2 Delivery O2 Flow Rate FiO2 04/14/25 11:27 48 13 128/84 (99) 97 Room Air 0.0 04/14/25 10:47 96.6 Result Diagram: 04/14/25 0539 04/14/25 0539 Awake , alert and oriented to time,place, person, in mild distress HEENT: Atraumatic, normocephalic, PEERLA, anicteric sclera ; pink conjunctiva Neck: Trachea midline. Supple, normal range of motion, no JVD Cardiac: S1, S2 heard,Regular rate and rhythm, no murmurs heard. Chest and Respiratory: Equal breath sounds bilaterally, no tachypnea, wheezing and ronchi .Chest wall is symmetric and without deformity. Abdomen: Soft, mildly distended. Tenderness mainly in the hypogastric and umbilical region.No guarding or rigidity, Leslie's sign negative. normal bowel sounds x4 quadrant, , no hepatosplenomegaly MSK: Range of motion of all extremities are normal. There is no joint pain or joint swelling or joint erythema. There is no muscle pain or tenderness or swelling. Extremities: warm, well-perfused, No cyanosis, clubbing, 2+ pulses felt Neurological: Speech is clear, alert, and oriented x 4. No sensory or motor deficits. Cranial nerves II-XII intact. Skin: Warm and dry Psychiatry: Affect and mood are normal Coagulation Studies Laboratory Tests Test 04/14/25 05:39 Prothrombin Time 12.1 SECONDS (9.0-12.0) H INR International Normalized Ratio 1.2 INR Activated Partial Thromboplast Time 27 SECONDS (22-32) Coagulation Comments Assessment Assessment A 44 years old female patient admitted with abdominal pain and worsening diarrhea. Patient scheduled for EGD and colonoscopy Plan Plan Abdominal pain, diarrhea, nausea Possible gastroenteritis Possible cannabis induced diarrhea Ruled out closed loop bowel obstruction -Hold home medications Zepbound -CT abdomen showed abnormal dilatation of small-bowel loops up to 4 cm, associated swelling of the mesentery within the central aspect of left mid abdomen. Concerning for internal hernia/close loop obstruction. Small amount of free pelvic fluid -ER physician consulted Dr. Maciel. Recommended CT with oral and IV contrast -CT abdomen with oral and IV contrast is unremarkable -Negative for C difficile toxins and antigen -CBC, lactate and procalcitonin normal -Stool culture is negative -Urine toxicology is positive for cannabinoids -awaiting hepatitis-B panel -TSH level are in normal limits. -IV Zofran 4 mg p.r.n. for nausea and vomiting -started on IV protonix 40 mg once daily - started on IV ceftriaxone 1 g once daily - started on IV metronidazole 500 mg q.12 h -Started on IV normal saline at the rate of 100 mL/hour - started on culturelle p.o. b.i.d. EGD: Normal esophagus Congested and erythematous mucosa in the antrum and pre-pyloric region of the stomach. Normal duodenal bulb and 2nd portion of duodenum Colonoscopy: Resected and retrieved One 8 mm polyp in the rectum and biopsied. Awaiting for pathology report. -Repeat colonoscopy in 7-10 years for surveillance,if Resected polyp is adenomatous -Advised to follow up with pathology report in [facility] in 2 weeks Metabolic acidosis with normal anion gap Hypokalemia, resolved Depression/bipolar disorder Tobacco abuse -Continue management as per primary hospitalist team DVT prophylaxis: SCD GI prophylaxis: Clear liquid diet Disposition: A 44 years old female patient admitted with worsening diarrhea for 5 days. Colonoscopy showed one 8 mm polyp which was resected and biopsied. Continue the medical management. Val Gregg MD Internal Medicine Resident, PGY 1 Date of Service: Apr 14, 2025 Billing Provider: RUBIN SAUCEDO MD, SUNIL KUMAR, RES Apr 14, 2025 12:13
[2025-04-14] MEDS: potassium Cl 20 mEq SR tablet PO PRN (12:23)
[2025-04-14 13:12] LABS: HBSAG SCREEN Negative (Negative); HEP B CORE AB, IGM Negative (Negative); HEP B CORE AB, TOT Negative (Negative)
[2025-04-14] MEDS ORDERED: LACT1CAP26 PO (17:15)
[2025-04-14] MEDS ORDERED: PANT-47 PO (17:15)
[2025-04-14] MEDS ORDERED: METR-159 PO (17:15)
[2025-04-14] MEDS ORDERED: CEFD300C3 PO (17:15)
[2025-04-14] MEDS ORDERED: ONDA-243 PO (17:15)
[2025-04-14] MEDS ORDERED: potassium Cl 20 mEq SR tablet PO STA (18:03)
--- NOTE | 2025-04-14 18:10 | DISCHARGE SUMMARY-Residence ---
Discharge Summary Providers to CC Resident Creating Document: CINTHYA PEÑA RES CC: TOM CHANG MD ~ Discharge Summary Admission Diagnosis: bowel obstruction Hospital Course DATE OF ADMISSION: 04/11/2025 DATE OF DISCHARGE:04/14/2025 Discharge Diagnosis\Comment: Acute Gastroenteritirs Chronic Diarhea under evaluation Depression Hypokalemia,treated Operations\Procedures: Colonoscopy EGD Consultants: and Dr. Magana Complications: None Condition on DC: Stable New Medications: Cefdinir* (Cefdinir*) 300 Mg Capsule 1 CAP PO Q12H for 3 Days, #6 CAP Metronidazole* (Flagyl*) 500 Mg Tablet 1 TAB PO BID for 3 Days, #6 TAB ONDANSETRON ODT 4mg tablet (Ondansetron Odt) 4 Mg Tab.rapdis 1 TAB PO Q6H PRN PRN for nausea/vomiting for 4 Days, #16 TAB 0 Refills Pantoprazole Sodium (PROTONIX tablet) 40 Mg Tablet.dr 40 MG PO DAILY for 30 Days, #30 TAB.SR Lactobacillus Rhamnosus (Culturelle) 10 Billion Cell Capsule 96488 MMU PO BID for 30 Days, #60 CAP Continued Medications: Bupropion HCl (Bupropion Xl) 300 Mg Tab.er.24h 1 TAB PO QAM Docusate Sodium (Docusate Sodium) 100 Mg Capsule 1 CAP PO HS PRN for constipation Fluoxetine Hcl (Prozac) 20 Mg Capsule 1 CAP PO DAILY Gabapentin (Gabapentin) 600 Mg Tablet 1 TAB PO HS Progesterone,Micronized (Progesterone) 100 Mg Capsule 1 CAP PO DAILY Tirzepatide (Zepbound) 2.5 Mg/0.5 Ml Pen.injctr 2.5 MG SQ Q7D Zolpidem Tartrate (Ambien) 10 Mg Tablet 1 TAB PO HS Discontinued Medications: Ondansetron Hcl (Zofran) 4 Mg Tablet 1 TAB PO Q6H PRN for nausea/vomiting, #14 TAB Discharge Summary: This patient presented in ER with ongoing diarrhea and abdominal pain, and started on IV fluids in view of diarrhea,Initial workup for C diff was done which was negative, due to persistent symptoms and concern for possible infe ction or inflammatory cause she was started on IV antibiotics ceftriaxone and metronidazole, stool culture performed which was negative. CT scan of the abdomen and pelvis was performed which showed no significant abnormalities. Due to her continued diarrhea, Gasteroenterologist and Surgeon was also taken on board colonoscopy and EGD was performed to further investigate potential GI cause. She also received ondansetron for nausea and pain meds as p.r.n and culturelle for diarhhea. Her hypokalemia was treated with K dur tablet 40meq. Apart from that she also received her regular home meds for depression. Patient is physically and medically stable for discharge home Physical Examination at discharge General: awake, alert oriented to place, time, and person HEENT: No pallor present, no icterus, moist mucous membranes Neck: No masses and tenderness Resp: Unlabored. Lungs clear to auscultation bilaterally. Chest: Normal expansion. Cardiovascular: Regular Rate and rhythm, normal S1 and S2 without murmur, rub or gallop Abdomen: Soft and non tender abdomen, no organomegaly, no guarding and rigidity, bowel sounds present Neuro: No focal weakness in the upper and lower limb muscles, power of the muscles 5/5 bilateral upper and lower extremities, normal reflexes bilaterally. Cranial nerves intact Extremities: No cyanosis,clubbing or edema Skin: Warm and Dry. Psych: Normal affect Labs at discharge WBC: 4 Hgb:11.9 Hct: 34.8 Platelet count: 160 BUN: 1 Creatinine: 0.85 Sodium:132 Potassium:3.[address] Abdomen and Pelvis with Contrast: No CT evidence of an acute abdominal/p elvic process Colonoscopy Results: Normal mucosa in the entire examined colon, biopsied One 8 mm polyp in the rectum, removed with a cold snare. Resected and retrieved The distal rectum and anal verge are normal on retroflexion. Awaiting biopsied results. EGD: Normal esophagus, congested and erythematous mucosa in the antrum and pre-pyloric region of the stomach. Biopsied Normal duodenal bulb and the 2nd portion of the duodenum. Discharge Instructions: Follow up with your biopsy results for EGD and colonoscopy with Dr. Magana is office. Takes Zofran Q 6H prn as needed for nausea/vomitting. Continue antibiotics for three more days and then stop, continue protonix for 30 days and stop. If Condition worsens call 911 or Go to your nearest Emergencyroom immediately. Discharge summary reviewed and edited. *Problems/Diagnosis: (1) Abdominal pain Status: Resolved (2) Nausea vomiting and diarrhea Status: Resolved Total Time Spent on D/C: > 30 Minutes Date of Service: Apr 14, 2025 Billing Provider: TOM CHANG MD Problem Qualifiers (1) Abdominal pain: Abdominal location: generalized Qualified Codes: R10.84 - Generalized abdominal pain CINTHYA PEÑA, RES Apr 14, 2025 18:07 BENITO QUINTANA, RES Apr 14, 2025 19:21
--- NOTE | 2025-04-15 13:55 | PATHOLOGY REPORT ---
[facility] [address] [place] [address] SURGICAL PATHOLOGY REPORT CaseNumber: [id number] Surgeon:Angelo Shepherd M.D. CLINICAL INFORMATION CLINICAL INFORMATION: Epigastric abdominal pain, suspected gastro-esophageal reflux disease. Clinical ly significant diarrhea of unexplained origin. DIAGNOSIS DIAGNOSIS: A.GASTRIC ANTRUM, BIOPSIES X 2 - NO SIGNIFICANT INFLAMMATION, EDEMA, OR VASCULAR CONGESTION - NO INTESTINAL METAPLASIA BY PAS STAINING - NO DYSPLASIA OR MALIGNANCY - NO H. PYLORI ORGANISMS ARE HIGHLIGHTED BY IMMUNOHISTOCHEMISTRY DIAGNOSIS: B.COLON, MULTIPLE RANDOM BIOPSIES - OCCASIONAL SMALL BENIGN LYMPHOID AGGREGATES - NO SIGNIFICANT INFLAMMATION OR LYMPHOCYTIC COLITIS - NO INCREASED SUBMUCOSAL COLLAGEN DEPOSITION - NO INFECTIOUS ELEMENTS ARE IDENTIFIED - NO DYSPLASTIC OR NEOPLASTIC FEATURES DIAGNOSIS: C.RECTAL POLYP, BIOPSY - BENIGN HYPERPLASTIC POLYP MICROSCOPIC DESCRIPTION A. GASTRIC ANTRUM, BIOPSIES X 2 MICROSCOPIC DESCRIPTION: Reviewed is a single H&E-stained slide showing serial sections and levels of two fragments of gastric antral type mucosa. There is no significant inflammation, edema, or vascula r congestion. There is no intestinal metaplasia by PAS staining. There are no dysplastic or neoplasti c features. Also, no H. pylori organisms are highlighted by immunohistochemistry. B. COLON, MULTIPLE RANDOM BIOPSIES MICROSCOPIC DESCRIPTION: Reviewed is a single H&E-stained slide showing sections on levels of multipl e fragments of colonic mucosa. There are occasional small benign lymphoid aggregates. However, there is no significant inflammation or features of lymphocytic colitis. There is no increased submucosal c ollagen deposition. No infectious elements are identified. There are no dysplastic or neoplastic feat ures. C. RECTAL POLYP, BIOPSY MICROSCOPIC DESCRIPTION: Reviewed is a single H&E-stained slide showing serial sections and levels of a single polypoid fragment of colonic mucosa. There are areas involved by hyperplastic changes. Ther e are no dysplastic or neoplastic features. GROSS DESCRIPTION A. GASTRIC ANTRUM, BIOPSIES X 2 GROSS DESCRIPTION: Received in a container of formalin labeled with the patient's name, number, and " antrum biopsy" are 2 pieces of galvan tissue 0.6 x 0.2 x 0.1 cm each. The specimen is entirely submitted as A1. The time at which the specimen was removed was 1011. The time at which the specimen was plac ed in formalin was 1011. B. COLON, MULTIPLE RANDOM BIOPSIES GROSS DESCRIPTION: Received in a container of formalin labeled with the patient's name, number, and " random" is a 0.6 x 0.6 x 0.2 cm aggregate of irregularly shaped pieces of galvan tissue. The specimen is entirely submitted as B1. The time at which the specimen was removed was 1032. The time at which the specimen was placed in formalin was 1032. C. RECTAL POLYP, BIOPSY GROSS DESCRIPTION: Received in a container of formalin labeled with the patient's name, number, and " rectum polyp" is a 0.3 cm piece of galvan tissue. The specimen is entirely submitted as C1. The time at which the specimen was removed was 1039. The time at which the specimen was placed in formalin was 10 39. Electronically signed by: Corby Hernandez M.D. 04/15/2025 1:29:00 PM
== END 2025-04-14 18:05 | disposition home or self-care (01) | DRG 249 ==
LOC: ER 10:39 → ED HOLD 16:12 → ORTHO 4S 19:10
PROVIDERS: ADMIT Family Medicine; ATTEND Family Medicine
PROC: BW211ZZ Computerized Tomography (CT Scan) of Abdomen and Pelvis using Low Osmolar Contrast (ICD-10-PCS; 2025-04-11)
PROC: BW211ZZ Computerized Tomography (CT Scan) of Abdomen and Pelvis using Low Osmolar Contrast (ICD-10-PCS; 2025-04-12)
PROC: 0DB68ZX Excision of Stomach, Via Natural or Artificial Opening Endoscopic, Diagnostic (ICD-10-PCS; 2025-04-14)
PROC: 0DB78ZX Excision of Stomach, Pylorus, Via Natural or Artificial Opening Endoscopic, Diagnostic (ICD-10-PCS; 2025-04-14)
PROC: 0DBP8ZZ Excision of Rectum, Via Natural or Artificial Opening Endoscopic (ICD-10-PCS; principal; 2025-04-14 09:58)
DX: K52.89 Other specified noninfective gastroenteritis and colitis (principal); E87.20 Acidosis, unspecified; K31.89 Other diseases of stomach and duodenum; F31.9 Bipolar disorder, unspecified; K46.0 Unspecified abdominal hernia with obstruction, without gangrene; F41.9 Anxiety disorder, unspecified; D12.8 Benign neoplasm of rectum; E87.6 Hypokalemia; Z90.49 Acquired absence of other specified parts of digestive tract
CPT/HCPCS: 36415; 43239; 45385; 74176; 74177; 80053; 80305; 81001; 81025; 83605; 83690; 83735; 84100; 84145; 84443; 85025; 85610; 85730; 86704; 86705; 87040; 87045; 87046; 87081; 87088; 87324; 87340; 87449; 89055; 96374; 96375; 99285; A4620; C1889; G0378; J0696; J2270; J2405; J2470; J2704; J3480; J3490; J7030; J7120; Q9963; Q9967